=== PATIENT | female | born 1985 | race Caucasian/White ===

== ENCOUNTER 2019-01-26 19:45 | Emergency (ER) | payer BC ==
[~2019-01-26] VITALS: Ht 175.3 cm; Wt 71.2 kg
[2019-01-26 20:11] VITALS: BP_SYST 152
--- NOTE | 2019-01-26 21:27 | NUR ---
Patient to ER bed 05 to gown for evaluation. Side rails up. Report given to FRED Rodgers
--- NOTE | 2019-01-26 21:32 | NUR ---
Iliana fisher in ED - 01/26/19 at 2133 by [email or web address] KOFI Berrios at bedside examining patient.
--- NOTE | 2019-01-26 21:32 | NUR ---
Pt BIB family to ED C/O depression, s/p 5 days from given induced . Pt states "not having any SI." No other injuries and or complaints noted. VSS no s/s of acute distress. Resting on gurney rails up
--- NOTE | 2019-01-26 21:32 | NUR ---
Dr. Berrios bedside for Pt eval
[2019-01-26 22:00] VITALS: BP_SYST 152
--- NOTE | 2019-01-26 22:00 | NUR ---
Patient given written and verbal discharge instructions and verbalizes understanding. ER MD discussed with patient the results and treatment provided. Patient in stable condition. ID arm band removed. Patient educated on pain management and to follow up with PMD. Pain Scale 0/10 Opportunity for questions provided and answered.
== END 2019-01-26 22:00 | disposition home or self-care (01) ==
LOC: SED 19:45
DX: O99.345 Other mental disorders complicating the puerperium (principal); F53.0 Postpartum depression
CPT/HCPCS: 99281